=== PATIENT | female | born 1980 | race Caucasian/White ===

== ENCOUNTER → 2020-07-20 09:23 | Outpatient (CLI) | payer OTHER, SELFPAY ==
--- NOTE | ~2020-07-20 | MM_ITS ---
EXAMINATION: MM screening sharlene BI w graciela HISTORY: Screening TECHNIQUE: Craniocaudal and mediolateral oblique 3-D tomosynthesis images were obtained and synthetic 2-D images were generated. CAD analysis was submitted and interpreted. COMPARISON: No prior mammogram is available for comparison at this institution. BREAST PARENCHYMAL COMPOSITION: There are scattered areas of fibroglandular density. FINDINGS: There is no evidence of suspicious mass, calcification, or architectural distortion to sugg est malignancy in either breast. There has been no suspicious interval change. IMPRESSION: 1. No mammographic evidence of malignancy. 2. Recommend routine screening mammography in one year. BI-RADS Category 1: Negative Reviewed, dictated and finalized at location A.
== END ==
PROVIDERS: PCP Family Medicine; Visit Provider Nurse Practitioner Obstetrics & Gynecology
DX: Z12.31 Encounter for screening mammogram for malignant neoplasm of breast (principal)
CPT/HCPCS: 77063; 77067

== ENCOUNTER 2021-05-09 11:19 | Outpatient (CLI) | payer OTHER, SELFPAY | END 2021-05-09 11:20 | disposition home or self-care (01) | PROVIDERS: PCP Family Medicine | DX: M04.9 Autoinflammatory syndrome, unspecified (principal); F41.9 Anxiety disorder, unspecified; R53.83 Other fatigue; F06.8 Other specified mental disorders due to known physiological condition | CPT/HCPCS: 99199; 36415 ==

== ENCOUNTER → 2022-05-01 15:24 | Outpatient (CLI) | payer OTHER, SELFPAY ==
--- NOTE | ~2022-05-01 | MM_ITS ---
EXAMINATION: MM screening sharlene BI w graciela HISTORY: Screening mammogram TECHNIQUE: Craniocaudal and mediolateral oblique 3-D tomosynthesis images were obtained and synthetic 2-D images were generated. CAD analysis was submitted and interpreted. COMPARISON: 07/20/2020 BREAST PARENCHYMAL COMPOSITION: The breasts are heterogeneously dense, which may obscure small masses . FINDINGS: No suspicious mass, calcification, or architectural distortion are identified in either armando ast to suggest malignancy. There has been no suspicious interval change. IMPRESSION: 1. No mammographic evidence of malignancy. 2. Recommend routine screening mammography in one year. BI-RADS Category 1: Negative Reviewed, dictated and finalized at location A. CLIMBER
== END ==
PROVIDERS: PCP Family Medicine; Visit Provider Nurse Practitioner Obstetrics & Gynecology
DX: Z12.31 Encounter for screening mammogram for malignant neoplasm of breast (principal)
CPT/HCPCS: 77063; 77067

== ENCOUNTER 2024-03-10 12:27 | Outpatient (CLI) | payer OTHER, SELFPAY ==
--- NOTE | ~2024-03-10 | MM_ITS ---
EXAMINATION: MM screening sharlene BI w graciela HISTORY: Screening TECHNIQUE: Craniocaudal and mediolateral oblique 3-D tomosynthesis images were obtained and synthetic 2-D images were generated. CAD analysis was submitted and interpreted. COMPARISON: Comparison to multiple prior studies sequentially, with oldest reviewed study dated 07/20. BREAST PARENCHYMAL COMPOSITION: Not dense: There are scattered areas of fibroglandular density. FINDINGS: There is no evidence of suspicious mass, calcification, or architectural distortion to sugg est malignancy in either breast. There has been no suspicious interval change. IMPRESSION: 1. No mammographic evidence of malignancy. 2. Recommend routine screening mammography in one year. BI-RADS Category 1: Negative Reviewed, dictated and finalized at location A. L BUILDER DISPLAY
== END 2024-03-10 12:28 | disposition home or self-care (01) ==
LOC: MICIMG 12:28
PROVIDERS: PCP Family Medicine; Visit Provider Obstetrics & Gynecology
DX: Z12.31 Encounter for screening mammogram for malignant neoplasm of breast (principal)
CPT/HCPCS: 77063; 77067

== ENCOUNTER 2024-12-10 10:53 | Emergency (ER) | payer OTHER, SELFPAY ==
[2024-12-10 11:03] VITALS: BP 120/83; PULSE 83; RESP 16; TEMP 37.1; O2SAT 100
--- NOTE | 2024-12-10 11:28 | ED.URI ---
HPI - URI/Sore Throat General Chief Complaint: Upper Respiratory Infection Stated Complaint: sinus issues Time Seen by Provider: 12/10/24 11:19 Source: patient and RN notes reviewed Mode of arrival: ambulatory Limitations: no limitations History of Present Illness HPI Narrative: Patient presents today complaining of an approximately 1.5 week history a right-sided facial pain, nasal congestion, postnasal drainage. Symptoms have worsened over the last 2 days. Denies cough or fever. She has tried Zyrtec, Tylenol, ibuprofen, and Sudafed with very mild improvement. 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 Related Data Home Medications ?Medication ?Instructions ?Recorded ?Confirmed ?Last Taken ?Type levothyroxine 25 mcg tablet mcg 12/10/24 Unknown History Allergies Allergy/AdvReac Type Severity Reaction Status Date / Time No Known Allergies Allergy Verified 12/10/24 11:03 [facility] Comments At time of signature, I have reviewed and agree with nursing past medical, surgical, social and family history unless otherwise noted. Please see nursing chart for further information. There is no relevant family history pertinent to the presenting complaint Exam Narrative: GENERAL: Mildly ill-appearing, well-nourished, and in no acute distress. HEAD: Normocephalic, atraumatic. EYES: EOMI. No redness or drainage. Conjunctivae normal. ENT: Mucous membranes pink and moist. Nares congested with rhinorrhea. Bilateral nasal turbinates are erythematous and edematous. Right frontal and maxillary sinus tenderness. TMs normal bilaterally. Throat normal. Uvula midline. NECK: Normal AROM. Supple. Bilateral anterior cervical chain lymphadenopathy CHEST: No respiratory distress. Clear to auscultation. HEART: Regular rate and rhythm. No murmur appreciated. EXTREMITIES: Normal range of motion. No edema. SKIN: Warm, dry, no rash. Capillary refill normal. Normal skin turgor. NEURO: No focal deficits. Alert and oriented x3. Gait steady. PSYCH: Normal affect. No signs of depression or anxiety. Course Course Level of Care: Express Care Visit Vital Signs Vital signs: Vital Signs Temperature 98.7 F 12/10/24 11:03 Pulse Rate 83 12/10/24 11:03 Respiratory Rate 16 12/10/24 11:03 Blood Pressure 120/83 12/10/24 11:03 Pulse Oximetry 100 12/10/24 11:03 Temperature 98.7 F 12/10/24 11:03 Pulse Rate 83 12/10/24 11:03 Respiratory Rate 16 12/10/24 11:03 Blood Pressure 120/83 12/10/24 11:03 Pulse Oximetry 100 12/10/24 11:03 Reviewed MDM - URI/Sore Throat MDM Narrative Medical decision making narrative: Patient presents today complaining of an approximately 1.5 week history a right-sided facial pain, nasal congestion, postnasal drainage. Symptoms have worsened over the last 2 days. Denies cough or fever. She has tried Zyrtec, Tylenol, ibuprofen, and Sudafed with very mild improvement. History of seasonal allergies. Upon exam, patient is mildly ill appearing with Nares congested with rhinorrhea. Bilateral nasal turbinates are erythematous and edematous. Right frontal and maxillary sinus tenderness. Patient will be treated with Augmentin for bacterial sinusitis and prednisone for her head pressure and inflammation. Recommend continuing an antihistamine as well as Tylenol or ibuprofen for discomfort if needed. Patient agrees with plan. Vital signs stable. Anticipatory guidance given. Differential Diagnosis Differential diagnosis: Likely upper respiratory infection, otitis media, sinusitis and viral infection Critical Care Time Critical Care Time Critical Care Time: No Discharge Plan Discharge Clinical Impression: Sinusitis Qualifiers: Sinusitis location: maxillary Chronicity: acute Recurrence: non-recurrent Qualified Code(s): J01.00 - Acute maxillary sinusitis, unspecified Patient Disposition: Home Condition: Stable Instructions: Antibiotic Form, Sinusitis (ED) Additional Instructions: Please take all medications as prescribed. Continue an antihistamine such as Zyrtec, Claritin, or Bela. Follow-up with your PCP in 3-4 days if symptoms are not improving. Patient Language: Nigerian Prescriptions: New prednisone 20 mg tablet 40 mg PO DAILY 5 Days Qty: 10 0RF amoxicillin-pot clavulanate 875-125 mg tablet 1 tablet PO Q12H 7 Days Qty: 14 0RF No Action levothyroxine 25 mcg tablet Follow-up/Referrals: Keyla Grajeda MD [Primary Care Provider, [facility]] Time of Disposition: 11:33
== END 2024-12-10 11:39 | disposition home or self-care (01) ==
PROVIDERS: Emergency Provider Nurse Practitioner; PCP Family Medicine
DX: J01.00 Acute maxillary sinusitis, unspecified (principal)
CPT/HCPCS: 99203; G0463